=== PATIENT | male | born 1965 | race African-American/Black ===

== ENCOUNTER 2020-07-31 21:02 | Emergency (ER) | payer BC ==
[~2020-07-31] VITALS: Ht 185.4 cm; Wt 107.0 kg
[2020-07-31 21:18] VITALS: BP 143/82; Ht 185.4 cm; Wt 107.0 kg
== END 2020-08-01 01:22 | disposition home or self-care (01) ==
LOC: ED 21:02
DX: S76.912A Strain of unspecified muscles, fascia and tendons at thigh level, left thigh, initial encounter (principal); X58.XXXA Exposure to other specified factors, initial encounter; Y93.01 Activity, walking, marching and hiking; Y92.89 Other specified places as the place of occurrence of the external cause; Y99.8 Other external cause status
CPT/HCPCS: J1885